=== PATIENT | female | born 1955 | race Caucasian/White ===

== ENCOUNTER → 2020-12-08 | Day surgery (SDC) | payer OTHER ==
[~2020-12-08] MED LIST: CITALOPRAM HBR40 MG PO; FELODIPINE ER5 MG PO; FUROSEMIDE40 MG PO; GLUCOPHAGE1000 MG PO; TOPROL XL25 MG PO; TRADJENTA5 MG PO; TRESIBA100 UNIT/1 SQ; VITAMIN D250 MCG PO; ZETIA10 MG PO
== END | disposition home or self-care (01) ==
LOC: OR 08:46
DX: K76.6 Portal hypertension (principal); K70.31 Alcoholic cirrhosis of liver with ascites; K31.89 Other diseases of stomach and duodenum; K29.61 Other gastritis with bleeding; I10 Essential (primary) hypertension; E78.5 Hyperlipidemia, unspecified; E11.9 Type 2 diabetes mellitus without complications; E78.00 Pure hypercholesterolemia, unspecified; Z87.891 Personal history of nicotine dependence; Z79.4 Long term (current) use of insulin; Z79.899 Other long term (current) drug therapy
CPT/HCPCS: 82962; J2704; J7040

== ENCOUNTER → 2021-05-12 | Outpatient (CLI) | payer OTHER | LOC: US 09:18 | DX: K70.31 Alcoholic cirrhosis of liver with ascites (principal); K76.0 Fatty (change of) liver, not elsewhere classified; Z90.49 Acquired absence of other specified parts of digestive tract | CPT/HCPCS: 36415; 76705; 80076; 85610 ==

== ENCOUNTER → 2022-05-16 | Outpatient (CLI) | payer OTHER | LOC: US 09:18 | DX: K70.30 Alcoholic cirrhosis of liver without ascites (principal) | CPT/HCPCS: 76705 ==